=== PATIENT | female | born 1985 | race Two or more races ===

== ENCOUNTER 2022-02-13 09:30 | Outpatient (CLI) | payer OTHER ==
[2022-02-14] MEDS ORDERED: PEPCID AC20 MG PO (15:15)
[2022-02-14] MEDS ORDERED: PRENATAL CAPLE1 EAC1 PO (15:15)
== END 2022-02-13 10:19 | disposition home or self-care (01) ==
LOC: NST 09:30
PROVIDERS: ATTEND Obstetrics & Gynecology
DX: Z34.83 Encounter for supervision of other normal pregnancy, third trimester (principal)